=== PATIENT | female | born 1960 | race African-American/Black ===

== ENCOUNTER 2016-11-30 17:57 | Emergency (ER) | payer OTHER ==
[~2016-11-30] VITALS: Ht 177.8 cm; Wt 72.6 kg
--- NOTE | 2016-11-30 18:15 | ED.ADGEN ---
Adult General Chief Complaint Chief Complaint: BACK PAIN - NO INJURY HPI HPI Patient is a 56 year old female presents emergency department complaining of a 3 hour history of low back pain. She describes it as a "cramping nerve pain" that radiates from her left low back on her left buttock. She has had no prehospital intervention. She has had no similar episodes in the past. She denies any bowel or bladder dysfunction or saddle anesthesia. Review of Systems Review of Systems Constitutional: Denies fever or chills. [] Eyes: Denies change in visual acuity. [] HENT: Denies nasal congestion or sore throat. [] Respiratory: Denies cough or shortness of breath. [] Cardiovascular: Denies chest pain or edema. [] GI: Denies abdominal pain, nausea, vomiting, bloody stools or diarrhea. [] : Denies dysuria. [] Musculoskeletal: Denies back pain or joint pain. [] Integument: Denies rash. [] Neurologic: Denies headache, focal weakness or sensory changes. [] Endocrine: Denies polyuria or polydipsia. [] Lymphatic: Denies swollen glands. [] Psychiatric: Denies depression or anxiety. [] Current Medications Current Medications Current Medications Medications (Trade) Dose Ordered Sig/Harriet Start Time Stop Time Status Last Admin Dose Admin Dexamethasone Sodium Phosphate (Decadron) 8 mg 1X ONCE 11/30/16 18:30 11/30/16 18:31 DC 11/30/16 18:40 8 MG Diazepam (Valium) 5 mg 1X ONCE 11/30/16 18:30 11/30/16 18:31 DC 11/30/16 18:40 5 MG Fentanyl Citrate (Fentanyl 2ml Vial) 75 mcg 1X ONCE 11/30/16 18:30 11/30/16 18:31 DC 11/30/16 18:40 75 MCG Hydromorphone HCl (Dilaudid) 0.5 mg 1X ONCE 11/30/16 19:15 11/30/16 19:16 DC Ketorolac Tromethamine (Toradol) 15 mg 1X ONCE 11/30/16 18:30 11/30/16 18:31 DC 11/30/16 18:40 15 MG Allergies Allergies Allergies Coded Allergies Type Severity Reaction Last Updated Verified No Known Drug Allergies 11/30/16 No Physical Exam Physical Exam Constitutional: Well developed, well nourished, moderate acute distress, non- toxic appearance. [] HENT: Normocephalic, atraumatic, bilateral external ears normal, oropharynx moist, no oral exudates, nose normal. [] Eyes: PERRLA, EOMI, conjunctiva normal, no discharge. [] Neck: Normal range of motion, no tenderness, supple, no stridor. [] Cardiovascular:Heart rate regular rhythm, no murmur [] Lungs & Thorax: Bilateral breath sounds clear to auscultation [] Abdomen: Bowel sounds normal, soft, no tenderness, no masses, no pulsatile masses. [] Skin: Warm, dry, no erythema, no rash. [] Back: Left lumbar paraspinal tenderness to palpation radiating down her left buttock, no CVA tenderness. [] Extremities: No tenderness, no cyanosis, no clubbing, ROM intact, no edema. [] Neurologic: Alert and oriented X 3, normal motor function, normal sensory function, no focal deficits noted. [] Psychologic: Affect normal, judgement normal, mood normal. [] Current Patient Data Vital Signs Vital Signs Date Time Temp Pulse Resp B/P Pulse Ox O2 Delivery O2 Flow Rate FiO2 11/30/16 18:40 16 11/30/16 18:09 97.8 79 94 Room Air 97.8 EKG EKG [] Radiology/Procedures Radiology/Procedures [] Course & Med Decision Making Course & Med Decision Making Pertinent Labs and Imaging studies reviewed. (See chart for details) IV Valium, Toradol, fentanyl, and Decadron here in emergency department. She will be sent home with prescription for [place] as well as supportive care instructions and follow-up directions. Patient's pain is much improved. She is being sent home with a prescription for Naprosyn and [place]. She will follow-up with her physician in 24-48 hours if she continues to have issues. She will return emergency department sooner she develops new or worsening symptoms. [] Dragon Disclaimer Dragon Disclaimer This electronic medical record was generated, in whole or in part, using a voice recognition dictation system. MICHAELA WHITESIDE MD Nov 30, 2016 18:15
[2016-11-30] MEDS ORDERED: FENTANYL PF 100 MCG/2 ML VIAL. IV ONE (18:30)
[2016-11-30] MEDS ORDERED: DEXAMETHASONE SOD PHOS 4 MG/ML VIAL IV ONE (18:30)
[2016-11-30] MEDS ORDERED: DIAZEPAM 10 MG/2 ML DISP.SYRIN. IV ONE (18:30)
[2016-11-30] MEDS ORDERED: KETOROLAC 15 MG/ML VIAL. IV ONE (18:30)
[2016-11-30] MEDS ORDERED: HYDR-971 PO (19:07)
[2016-11-30] MEDS ORDERED: NAPR550T3 PO (19:07)
[2016-11-30] MEDS ORDERED: HYDROMORPHONE 2 MG/ML VIAL. IV ONE (19:15)
[2016-11-30 19:30] VITALS: BP 154/68
== END 2016-11-30 19:41 | disposition home or self-care (01) ==
LOC: ER 17:57
DX: M54.5 Low back pain (principal)
CPT/HCPCS: 96374; 96375; 99284; J1100; J1170; J1885; J3010; J3360